=== PATIENT | male | born 1955 | race Caucasian/White ===

== ENCOUNTER 2018-09-08 23:23 | Emergency (ER) | payer OTHER ==
[~2018-09-08] VITALS: Ht 175.3 cm; Wt 131.5 kg
[2018-09-08 23:28] VITALS: BP 159/91
[2018-09-08] MEDS ORDERED: NEXIUM40 MG PO (23:33)
[2018-09-08] MEDS ORDERED: LISINOPRIL-HCT1 EACH PO (23:33)
[2018-09-08] MEDS ORDERED: LIDOCAINE VISC100 ML PO (23:38)
[2018-09-08] MEDS ORDERED: AMOXICILLIN 50500 MG PO (23:38)
[2018-09-08] MEDS ORDERED: NORCO 5-325 TA1 EACH PO (23:38)
== END 2018-09-08 23:45 | disposition home or self-care (01) ==
LOC: M.ERS 23:23
DX: K08.89 Other specified disorders of teeth and supporting structures (principal); E66.9 Obesity, unspecified; Z68.41 Body mass index [BMI] 40.0-44.9, adult; I10 Essential (primary) hypertension; K21.9 Gastro-esophageal reflux disease without esophagitis; G47.30 Sleep apnea, unspecified

== ENCOUNTER 2018-11-22 22:37 | Emergency (ER) | payer OTHER ==
[~2018-11-22] VITALS: Ht 175.3 cm; Wt 129.3 kg
[~2018-11-22 22:37] MED LIST: AMOXICILLIN 50500 MG PO; LIDOCAINE VISC100 ML PO; LISINOPRIL-HCT1 EACH PO; NEXIUM40 MG PO; NORCO 5-325 TA1 EACH PO
[2018-11-22 23:42] LABS: ABSOLUTE BASOPHILS 0.1 thou/uL (0.0-0.2); ABSOLUTE EOSINOPHILS 0.5 thou/uL (0.0-0.7); ABSOLUTE LYMPHOCYTES 1.5 thou/uL (0.8-5.3); ABSOLUTE MONOCYTES 0.9 thou/uL (0.0-1.2); ABSOLUTE NEUTROPHILS 6.8 thou/uL (1.6-8.1); BASOPHILS 0.8 %; EOSINOPHILS 5.1 %; HEMATOCRIT 42.3 % (42.0-52.0); HEMOGLOBIN 14.1 gm/dL (14.0-18.0); LYMPHOCYTES 15.6 %; MCH 28.6 pg (26.0-34.0); MCHC 33.4 g/dL (28.0-37.0); MCV 85.4 fL (80.0-100.0); MONOCYTES 8.9 %; NUCLEATED RBCS 0 /100WBC; PLATELET COUNT* 201 thou/uL (150-400); POLYS 69.6 %; RBC 4.96 mil/uL (4.50-6.00); WBC 9.7 thou/uL (4.0-11.0)
[2018-11-22 23:46] LABS: ANION GAP 6 mmol/L (7-16); BUN 10 mg/dL (7-18); CALCIUM 9.1 mg/dL (8.5-10.1); CHLORIDE 105 mmol/L (98-107); CO2 31 mmol/L (21-32); GLUCOSE 88 mg/dL (70-99); POTASSIUM 3.6 mmol/L (3.5-5.1); SODIUM 142 mmol/L (136-145)
[2018-11-22 23:55] LABS: ALBUMIN 3.4 g/dL (3.4-5.0); ALKALINE PHOSPHATASE 52 U/L (46-116); LIPASE 66 U/L (73-393); SGOT 10 U/L (15-37); SGPT 13 U/L (30-65); TOTAL BILIRUBIN 0.5 mg/dL (<0.1-1.0); TOTAL PROTEIN 7.3 g/dL (6.4-8.2); TROPONIN-I LEVEL <0.06 ng/mL (<0.06)
[2018-11-23 01:35] LABS: URINE BILIRUBIN NEGATIVE (Negative); URINE BLOOD NEGATIVE (Negative); URINE CLARITY CLEAR; URINE COLOR YELLOW; URINE GLUCOSE-RANDOM NEGATIVE (Negative); URINE KETONES NEGATIVE (Negative); URINE LEUKOCYTES-REFLEX NEGATIVE (Negative); URINE NITRITE-REFLEX NEGATIVE (Negative); URINE PROTEIN NEGATIVE (Negative); URINE SPECIFIC GRAVITY <= 1.005 (1.005-1.030); URINE UROBILINOGEN 0.2 E.U./dl (0.2-1.0)
[2018-11-23] MEDS ORDERED: FLAGYL500 M1 PO (01:59)
[2018-11-23] MEDS ORDERED: NORCO 5-325 TA1 EAC1 PO (01:59)
[2018-11-23] MEDS ORDERED: ZOFRAN ODT4 MG PO (01:59)
[2018-11-23 02:37] VITALS: BP 121/61
--- NOTE | 2018-11-23 15:42 | EKG ---
[place] [address] ELECTROCARDIOGRAM REPORT Name: GAVIN BUSTOS Room: [facility]#: [id number] Admission: 11/22/18 Attend Phys: Discharge: 11/23/18 Date of : 53 Report #: [id number] THIS REPORT FOR: //name// 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
== END 2018-11-23 02:38 | disposition home or self-care (01) ==
LOC: M.ERS 22:37
PROVIDERS: Physician Assistant
DX: K80.10 Calculus of gallbladder with chronic cholecystitis without obstruction (principal); I10 Essential (primary) hypertension; K21.9 Gastro-esophageal reflux disease without esophagitis; G47.30 Sleep apnea, unspecified; M10.9 Gout, unspecified; E66.9 Obesity, unspecified; Z68.41 Body mass index [BMI] 40.0-44.9, adult

== ENCOUNTER 2021-07-24 21:20 | Emergency (ER) | payer OTHER ==
[~2021-07-24] VITALS: Ht 175.3 cm; Wt 120.2 kg
[~2021-07-24 21:20] MED LIST changes: +FLAGYL500 M1 PO; +NORCO 5-325 TA1 EAC1 PO; +ZOFRAN ODT4 MG PO
[2021-07-24 22:32] LABS: ABSOLUTE BASOPHILS 0.1 thou/uL (0.0-0.2); ABSOLUTE EOSINOPHILS 0.3 thou/uL (0.0-0.7); ABSOLUTE LYMPHOCYTES 0.7 thou/uL (0.8-5.3); ABSOLUTE MONOCYTES 0.9 thou/uL (0.0-1.2); ABSOLUTE NEUTROPHILS 6.7 thou/uL (1.6-8.1); BASOPHILS 0.6 %; EOSINOPHILS 3.2 %; HEMATOCRIT 42.6 % (42.0-52.0); HEMOGLOBIN 14.2 gm/dL (14.0-18.0); MCH 28.5 pg (26.0-34.0); MCHC 33.3 g/dL (28.0-37.0); MCV 85.5 fL (80.0-100.0); MONOCYTES 10.6 %; MPV 7.6 fl. (7.2-11.1); NUCLEATED RBCS 0 /100WBC; PLATELET COUNT* 193 thou/uL (150-400); POLYS 77.6 %; RBC 4.99 mil/uL (4.50-6.00); RDW-CV 14.1 % (10.5-14.5); WBC 8.7 thou/uL (4.0-11.0)
[2021-07-24 22:37] LABS: CALCIUM 9.4 mg/dL (8.5-10.1); CREATININE 1.8 mg/dL (0.6-1.3); POTASSIUM 4.1 mmol/L (3.5-5.1)
[2021-07-24 22:41] LABS: ALBUMIN 3.6 g/dL (3.4-5.0); TOTAL BILIRUBIN 0.5 mg/dL (<0.1-1.0); TOTAL PROTEIN 7.8 g/dL (6.4-8.2)
[2021-07-25 00:27] LABS: URINE BILIRUBIN NEGATIVE (Negative); URINE BLOOD NEGATIVE (Negative); URINE CLARITY CLEAR; URINE COLOR YELLOW; URINE GLUCOSE-RANDOM NEGATIVE (Negative); URINE KETONES NEGATIVE (Negative); URINE LEUKOCYTES-REFLEX NEGATIVE (Negative); URINE NITRITE-REFLEX NEGATIVE (Negative); URINE PROTEIN NEGATIVE (Negative); URINE SPECIFIC GRAVITY 1.015 (1.005-1.030); URINE UROBILINOGEN 0.2 E.U./dl (0.2-1.0)
[2021-07-25 02:29] VITALS: BP 129/62
--- NOTE | 2021-07-25 09:12 | EKG ---
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1955 Requested By: Rayray Valladares Order Number: [id number] MD: Hugo Hernandez Measurements Intervals [place] Rate: 85 P: -5 [place]: 177 QRS: -14 QRSD: 92 T: 35 QT: 383 QTc: 456 Interpretive Statements Sinus rhythm Ventricular bigeminy and trigeminy Consider left atrial enlargement Anteroseptal infarct, old possible Compared to ECG 11/22/2018 23:13:32 Ventricular premature complex(es) now present Myocardial infarct finding now possible Electronically Signed On 07-25-2021 9:12:06 [employer]END[employer] by Hugo Hernandez [email or web address] <ELECTRONICALLY SIGNED> By: Hugo Hernandez MD, [facility] 07/25/21911 24 24 Hugo Hernandez MD, [facility] /EPI
== END 2021-07-25 02:31 | disposition home or self-care (01) ==
LOC: M.ERS 21:20
PROVIDERS: Physician Assistant Medical
DX: K80.20 Calculus of gallbladder without cholecystitis without obstruction (principal); I10 Essential (primary) hypertension; K21.9 Gastro-esophageal reflux disease without esophagitis; E66.9 Obesity, unspecified; Z68.39 Body mass index [BMI] 39.0-39.9, adult; Z98.890 Other specified postprocedural states; Z79.899 Other long term (current) drug therapy